=== PATIENT | male | born 1955 | race Caucasian/White ===

== ENCOUNTER 2017-07-21 02:16 | Emergency (ER) | payer OTHER ==
[2017-07-21] MEDS ORDERED: KETOROLAC 15 MG/1 ML SDV ONE (02:46)
--- NOTE | 2017-07-22 05:04 | EDPHY ---
H & P Time Seen by Provider: 07/21/17 04:00 HPI/ROS: HPI CHIEF COMPLAINT: Right-sided sharp stabbing pain HISTORY OF PRESENT ILLNESS: Patient is a otherwise healthy however has a history of AFib on Rythmol, additionally takes cholesterol medication, no history of coronary artery disease or stroke. 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 He presents emergency room with right-sided sharp stabbing pain. Describes it as pleuritic. It is only when he takes a deep breath in. He does not have any left-sided chest pain does not have any numbness or tingling or shortness of breath. Denies fever. Patient states this started around 10:00 p.m. Last night when he went to go to bed. He denies any injury or trauma. It is reproducible when he takes deep breath in. When he is not taking deep breath in he has no discomfort. Past Medical History: AFib on Rythmol, hyperlipidemia Past Surgical History: No recent surgery Social History denies tobacco or drugs. Does drink alcohol. Family History: Noncontributory ROS REVIEW OF SYSTEMS: A comprehensive 10 point review of systems is otherwise negative aside from elements mentioned in the history of present illness. Exam Constitutional , triage nursing summary reviewed, vital signs reviewed, awake/ alert. Eyes normal conjunctivae and sclera, EOMI, PERRLA. HENT normal inspection, atraumatic, moist mucus membranes, no epistaxis, neck supple/ no meningismus, no raccoon eyes. Respiratory clear to auscultation bilaterally, normal breath sounds, no respiratory distress, no wheezing. Cardiovascular rate normal, regular rhythm, no murmur, no edema, distal pulses normal. Gastrointestinal soft, non-tender, no rebound, no guarding, normal bowel sounds, no distension, no pulsatile mass. Genitourinary no CVA tenderness. Musculoskeletal no midline vertebral tenderness, full range of motion, no calf swelling, no tenderness of extremities, no meningismus, good pulses, neurovascularly intact. Skin pink, warm, & dry, no rash, skin atraumatic. Neurologic awake, alert and oriented x 3, AAOx3, moves all 4 extremities equally, motor intact, sensory intact, CN II-XII intact, normal cerebellar, normal vision, normal speech. Psychiatric normal mood/affect. Heme/Lymph/Immune no lymphadenopathy. 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 Re-evaluation: EKG interpretation by me on record in [employer] system. Impression time of EKG 2:40 a.m., sinus rhythm rate of 57 no signs of acute ischemia no ST elevation or significant ST depression no significant T-wave abnormalities. LVH present. 0532: Patient re-evaluate he is resting comfortably. He is pain-free. He states his initial right-sided sharp stabbing pain he took a deep breath in was 7/10 when he came in. However it is now gone after IV Toradol. The patient's EKG is nonischemic, he has 2-troponins, a chest x-ray that does not show any evidence of pneumonia or pneumothorax. He also has a negative D- dimer. He would like to go home. I discussed return precautions with him he understands return emergency room if develops any worsening symptoms includes chest pain, shortness of breath, or worsening symptoms. Clinically on exam most likely has pleurisy. Recommend anti-inflammatory pain medicine over the next 3 days. Return precautions discussed he understands. Source: Patient Departure - Departure Disposition: Home, Routine, Self-Care Clinical Impression: Pleurisy Condition: Good Instructions: Pleurisy (ED) Additional Instructions: 1. Return emergency room if you have worsening pain this includes shortness of breath, chest pain or questions or concerns. Referrals: NONE *PRIMARY CARE P,. [Primary Care Provider] - As per Instructions
[2017-07-22 05:09] VITALS: BP 126/69
--- NOTE | 2017-07-22 11:01 | CPEKG ---
Heart Rate: 57 RR Interval: 1053 P-R Interval: 164 QRSD Interval: 94 QT Interval: 408 QTC Interval: 398 P [place]: -8 QRS [place]: 50 T Wave [place]: 34 EKG Severity - ABNORMAL ECG - EKG Impression: SINUS RHYTHM EKG Impression: VENTRICULAR PREMATURE COMPLEX EKG Impression: CONSIDER LEFT VENTRICULAR HYPERTROPHY Electronically Signed By: Khoa Lan 22-Jul-2017 20:34:50
--- NOTE | 2017-07-22 14:56 | EDPHY ---
[facility] Patient Name: KAMRYN ASIF Rpt#: [id number] Unit Number: [id number] ER Physician: Tyler Waggoner MD Patient Type: REG ER Adm Date/Source: 07/21/17 EMR Discharge Date: Primary Carrier: [employer] [facility] PROVIDER REPORT H P Stated Complaint: c/o R sided cp since 2199 Time Seen by Provider: 07/21/17 07:22 HPI/ROS: HPI CHIEF COMPLAINT: Right-sided sharp stabbing pain HISTORY OF PRESENT ILLNESS: Patient is a otherwise healthy however has a history of AFib on Rythmol , additionally takes cholesterol medication, no history of coronary artery disease or stroke. 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 He presents emergency room with right-sided sharp stabbing pain. Describes it as pleuritic. It is only when he takes a deep breath in. He does not have any left-sided chest pain does not have any numbness or tingling or shortness of breath. Denies fever. Patient states this started around 10:00 p.m. Last night when he went to go to bed. He denies any injury or trauma. It is reproducible when he takes deep breath in. When he is not taking deep breath in he has no discomfort. Past Medical History: AFib on Rythmol, hyperlipidemia Past Surgical History: No recent surgery Social History denies tobacco or drugs. Does drink alcohol. Family History: Noncontributory ROS REVIEW OF SYSTEMS: A comprehensive 10 point review of systems is otherwise negative aside from elements mentioned in the history of present illness. Exam Constitutional , triage nursing summary reviewed, vital signs reviewed, awake/alert. Eyes normal conjunctivae and sclera, EOMI, PERRLA. HENT normal inspection, atraumatic, moist mucus membranes, no epistaxis, neck supple/ no meningismus, no raccoon eyes. Respiratory clear to auscultation bilaterally, normal breath sounds, no respiratory distress, no wheezing. Cardiovascular rate normal, regular rhythm, no murmur, no edema, distal pulses normal. Gastrointestinal soft, non-tender, no rebound, no guarding, normal bowel sounds, no distension, no pulsatile mass. Genitourinary no CVA tenderness. Musculoskeletal no midline vertebral tenderness, full range of motion, no calf swelling, no tenderness of extremities, no meningismus, good pulses, neurovascularly intact. Skin pink, warm, dry, no rash, skin atraumatic. Neurologic awake, alert and oriented x 3, AAOx3, moves all 4 extremities equally, motor intact, sensory intact, CN II-XII intact, normal cerebellar, normal vision, normal speech. Psychiatric normal mood/affect. Heme/Lymph/Immune no lymphadenopathy. Differential Diagnosis: Differential diagnosis includes but is not limited to: ACS, atypical chest pain, pneumothorax, pneumonia, pulmonary embolism, aortic dissection, congestive heart failure , tumor, musculoskeletal pain, esophageal pain, GERD, peptic ulcer disease, pancreatitis Medical Decision Making plan for this patient IV establishment full personnel monitor obtain EKG, two view chest x-ray to rule out pneumothorax, check D-dimer check troponin. Re-evaluation: EKG interpretation by me on record in [employer] system. Impression time of EKG 2:40 a.m., sinus rhythm rate of 57 no signs of acute ischemia no ST elevation or significant ST depression no significant T-wave abnormalities. LVH present. 0532: Patient re-evaluate he is resting comfortably. He is pain-free. He states his initial right -sided sharp stabbing pain he took a deep breath in was 7/10 when he came in. However it is now gone after IV Toradol. The patient's EKG is nonischemic, he has 2-troponins, a chest x-ray that does not show any evidence of pneumonia or pneumothorax. He also has a negative D-dimer. He would like to go home. I discussed return precautions with him he understands return emergency room if develops any worsening symptoms includes chest pain, shortness of breath, or worsening symptoms. Clinically on exam most likely has pleurisy. Recommend anti-inflammatory pain medicine over the next 3 days. Return precautions discussed he understands. - Medical/Surgical History Hx Asthma: No Hx Chronic Respiratory Disease: No Hx Diabetes: No Hx Cardiac Disease: Yes Hx Renal Disease: No Hx Cirrhosis: No Hx Alcoholism: No Hx HIV/AIDS: No Hx Splenectomy or Spleen Trauma: No Other PMH: afib, hyperlipidemia, hip surg Constitutional: Initial Vital Signs Temperature (C) 36.5 C 07/21/17 02:18 Heart Rate 63 07/21/17 02:18 Respiratory Rate 20 07/21/17 02:18 Blood Pressure 157/84 H 07/21/17 02:18 O2 Sat (%) 97 07/21/17 02:18 O2 Delivery Mode Room Air Allergies/Adverse Reactions: No Known Allergies Allergy (Unverified 07/21/17 06:51) Home Medications: Medication Instructions Recorded Rhythmol 07/21/17 Unk Cholest Med 07/21/17 Medical Decision Making - Data Points Laboratory Results: Laboratory Results 07/21/17 02:40 07/21/17 02:40 07/21/17 07/21/17 07/21/17 02:40 02:40 02:40 WBC 5.35 10 3/uL 10 3/uL (3.80-9.50) RBC 5.19 10 6/uL 10 6/uL (4.40-6.38) Hgb 16.4 g/dL g/dL (13.7-17.5) Hct 46.6 % % (40.0-51.0) MCV 89.8 fL fL (81.5-99.8) MCH 31.6 pg pg (27.9-34.1) MCHC 35.2 g/dL g/dL (32.4-36.7) RDW 11.9 % % (11.5-15.2) Plt Count 296 10 3/uL 10 3/uL (150-400) MPV 8.4 fL L fL (8.7-11.7) Neut % (Auto) 63.4 % % (39.3-74.2) Lymph % (Auto) 28.4 % % (15.0-45.0) [place] % (Auto) 5.8 % % (4.5-13.0) Eos % (Auto) 1.5 % % (0.6-7.6) Baso % (Auto) 0.7 % % (0.3-1.7) Nucleat RBC Rel Count 0.0 % % (0.0-0.2) Absolute Neuts (auto) 3.39 10 3/uL 10 3/uL (1.70-6.50) Absolute Lymphs (auto) 1.52 10 3/uL 10 3/uL (1.00-3.00) Absolute Monos (auto) 0.31 10 3/uL 10 3/uL (0.30-0.80) Absolute Eos (auto) 0.08 10 3/uL 10 3/uL (0.03-0.40) Absolute Basos (auto) 0.04 10 3/uL 10 3/uL (0.02-0.10) Absolute Nucleated RBC 0.00 10 3/uL 10 3/uL (0-0.01) Immature Gran % 0.2 % % (0.0-1.1) Immature Gran # 0.01 10 3/uL 10 3/uL (0.00-0.10) D-Dimer < 0.27 ug/mLFEU ug/mLFEU (0.00-0.50) Sodium 143 mEq/L mEq/L (135-145) Potassium 3.8 mEq/L mEq/L (3.3-5.0) Chloride 107 mEq/L mEq/L (97-110) Carbon Dioxide 24 mEq/l mEq/l (22-31) Anion Gap 12 mEq/L mEq/L (8-16) BUN 14 mg/dL mg/dL (7-23) Creatinine 0.9 mg/dL mg/dL (0.7-1.3) Estimated GFR Not Reported Glucose 178 mg/dL H mg/dL (70-100) Calcium 9.2 mg/dL mg/dL (8.5-10.4) Departure - Departure Disposition: Home, Routine, Self-Care Clinical Impression: Pleurisy Condition: Good Instructions: Pleurisy (ED) Referrals: NONE *PRIMARY CARE P,. [Primary Care Provider] - As per Instructions *This report may have been compiled using a voice recognition system, and might contain typographical errors and blanks.* Tyler Waggoner MD 07/21/1748 <Electronically signed by Tyler Waggoner MD> 4 T: [facility] 07/[facility]17734 CC: NONE *PRIMARY CARE PHYS ONLY*
[2017-07-24 18:44] LABS: PLATELET COUNT 296 10^3/uL (150-400)
== END 2017-07-21 05:52 | disposition home or self-care (01) ==
DX: R09.1 Pleurisy (principal)
CPT/HCPCS: 84484-PO; J1885